=== PATIENT | male | born 1945 | race Caucasian/White ===

== ENCOUNTER → 2016-07-24 14:46 | Emergency (ER) | payer MEDICARE ==
[~2016-07-24 14:46] MED LIST: Ibuprofen TAB* 600 MG PO ONE; oxyCODONE/Acetamin 5/325 MG* TAB PO ONE
--- NOTE | 2016-07-24 16:23 | RAD ---
INDICATION: Left wrist injury COMPARISON: None TECHNIQUE: AP, lateral, and oblique views were obtained. FINDINGS: There is a nondisplaced fracture the radial styloid. There is associated soft tissue swelling about the radial aspect of the distal forearm and wrist. There are no other acute fractures. There is advanced osteoarthritic change but the first carpometacarpal articulation. IMPRESSION: NONDISPLACED FRACTURE RADIAL STYLOID WITH ASSOCIATED SOFT TISSUE SWELLING. ADVANCED UNDERLYING OSTEOARTHRITIC CHANGE AT THE BASE OF THE THUMB
--- NOTE | 2016-07-24 16:43 | ED ---
Upper Extremity Pain - HPI Summary HPI Summary: Patient complaining of left wrist pain and swelling after a fall yesterday. He states he hit a wood harjit hole while mowing the lawn and it threw him off the tractor. Left wrist has erythema and ecchymosis. He has pain with any movement. He took one percocet at home at 0900. He suffered a skin tear of his lateral left elbow as well that he covered with a bandaid. He has full function of the elbow without pain. No prior injury of this wrist. No N/T. - History of Current Complaint Chief Complaint: EDExtremityUpper Stated Complaint: LT WRIST PAIN Time Seen by Provider: 07/24/16 15:13 Hx Obtained From: Patient Mechanism Of Injury: Fall From Height Of: - seated on a riding mower Onset/Duration: Started Days Ago - 1 Timing: Constant Severity Initially: Moderate Severity Currently: Severe Pain Location: Wrist Character: Sharp, Aching Aggravating Factor(s): Movement Alleviating Factor(s): Nothing Associated Signs & Symptoms: Positive: Swelling, Redness, Bruising Related History: Dominant Hand Right - Allergies/Home Medications Allergies/Adverse Reactions: Allergies Allergy/AdvReac Type Severity Reaction Status Date / Time unknown antibiotic Allergy Unknown Uncoded 07/24/16 15:03 Reaction Details Home Medications: Home Medications Citalopram TAB* [CeleXA TAB*] 40 mg PO DAILY 07/24/16 [History Confirmed ] Metoprolol Succinate XL TAB* [Toprol XL TAB*] 50 mg PO BID 07/24/16 [History Confirmed 07/24/16] PMH/Surg Hx/FS Hx/Imm Hx Cardiovascular History: Reports: Hx Deep Vein Thrombosis Musculoskeletal History: Reports: Hx Back Problems Infectious Disease History: No Infectious Disease History: Denies: Traveled Outside the [place] in Last 30 Days - Family History Known Family History: Positive: None - Social History Occupation: Retired Lives: With Family Alcohol Use: Occasionally Substance Use Type: Reports: None Smoking Status (MU): Never Smoked Tobacco Review of Systems Positive: Myalgia, Decreased ROM, Edema Positive: Bruising Negative: Paresthesia, Numbness All Other Systems Reviewed And Are Negative: Yes Physical Exam Triage Information Reviewed: Yes Vital Signs On Initial Exam: Initial Vitals Temp Pulse Resp BP Pulse Ox 97.9 F 112 18 147/86 100 07/24/16 15:01 07/24/16 15:01 07/24/16 15:01 07/24/16 15:01 07/24/16 15:01 Vital Signs Reviewed: Yes Appearance: Positive: Well-Appearing, Well-Nourished, Pain Distress Skin: Positive: Warm, Skin Color Reflects Adequate Perfusion, Dry, Soft, Erythema @ - dorsum of left wrist Head/Face: Positive: Normal Head/Face Inspection Eyes: Positive: EOMI, MERLIN, Conjunctiva Clear ENT: Positive: Hearing grossly normal Respiratory/Lung Sounds: Positive: Breath Sounds Present Cardiovascular: Positive: RRR Musculoskeletal: Positive: Limited @ - movement in all planes limited by pain, Pain @ - TTP left DRUJ, Edema Left - wrist Neurological: Positive: Sensory/Motor Intact, Alert, Oriented to Person Place, Time, NV Bundle Intact Distally Psychiatric: Positive: Affect/Mood Appropriate AVPU Assessment: Alert - Katty Coma Scale Coma Scale Total: 15 Procedures - Splinting Location: left wrist Hand-Made Type: plaster Splint: sugar-tong - with posterior mold Pre-Proc Neuro Vasc Exam: normal Post-Proc Neuro Vasc Exam: normal Diagnostics - Vital Signs Vital Signs Temp Pulse Resp BP Pulse Ox 07/24/16 15:49 16 07/24/16 15:30 97.9 F 112 18 147/86 100 07/24/16 15:01 97.9 F 112 18 147/86 100 - Laboratory Lab Statement: Any lab studies that have been ordered have been reviewed, and results considered in the medical decision making process. - Radiology No standard instances Xray Interpretation: Positive (See Comments) Radiology Interpretation Completed By: Radiologist Course/Dx - Diagnoses Differential Diagnosis/HQI/PQRI: Positive: Arthritis, Bursitis, Contusion, Fracture (Closed), Strain, Sprain Provider Diagnoses: Fracture of styloid process of left radius - Physician Notifications Instructed by Provider To: Have Pt Call For Appt. Discharge - Discharge Plan Condition: Stable Disposition: HOME Prescriptions: oxyCODONE/Acetamin 5/325 MG* [Percocet 5/325 TAB*] 1 tab PO Q4H PRN #24 tab MDD 6 PRN Reason: Pain Patient Education Materials: Wrist Fracture in Adults (ED) Referrals: Fede Leyva MD [Primary Care Provider] - Leland Schofield MD [Medical Doctor] - Additional Instructions: Wear your splint at all times and keep it clean, dry and intact. Use the sling for comfort as needed. Wiggle your fingers and elevate your hand above your heart to reduce swelling and pain. Use ibuprofen 400mg three times daily with meals for the next 3-5 days to decrease swelling and pain as well. Use the pain pill for uncontrolled pain. Call Dr. Hinojosa's office with orthopedics tomorrow for an appointment. in 3-5 day. Return to the emergency department if your symptoms worsen.
[2016-07-24 17:40] VITALS: BP 151/88
== END | disposition home or self-care (01) ==
LOC: ED 14:46
DX: S52.515A Nondisplaced fracture of left radial styloid process, initial encounter for closed fracture (principal); M25.532 Pain in left wrist; M79.1 Myalgia; W19.XXXA Unspecified fall, initial encounter; Y93.9 Activity, unspecified; Y92.9 Unspecified place or not applicable; Y99.9 Unspecified external cause status
CPT/HCPCS: 99282; A9270-GY

== ENCOUNTER 2016-12-07 13:43 | Inpatient (IN) | payer MEDICARE ==
[2016-12-07 15:20] LABS: Albumin 3.3 g/dL (3.2-5.2); BUN/Creatinine Ratio 8.1 (8-20); Calcium 8.9 mg/dL (8.6-10.3); EGFR African American 95.3 (>60); EGFR Non-African American 74.1 (>60); Globulin 2.7 g/dL (2-4); Potassium 3.9 mmol/L (3.5-5.0); Total Bilirubin 0.7 mg/dL (0.2-1.0); Troponin I 0.01 ng/mL (<0.04)
--- NOTE | 2016-12-07 15:23 | RAD ---
HISTORY: Chest pain COMPARISONS: None relevant available time dictation VIEWS: 1: frontal portable view of the chest at 2:55 PM FINDINGS: LINES AND TUBES: None. CARDIOMEDIASTINAL SILHOUETTE: The cardiomediastinal silhouette is normal for portable technique. PLEURA: The costophrenic angles are sharp. No pleural abnormalities are noted. LUNG PARENCHYMA: There is a 3.4 cm rounded density of the left midlung field. ABDOMEN: The upper abdomen is clear. There is no subphrenic gas. BONES AND SOFT TISSUES: No bone or soft tissue abnormalities are noted. IMPRESSION: THERE IS A 3.4 CM ROUNDED DENSITY OF THE LEFT MIDLUNG FIELD. WHILE THIS MAY REPRESENT FLUID ALONG THE FISSURE, PARENCHYMAL MASSES WITHIN THE DIFFERENTIAL. RECOMMEND FURTHER EVALUATION WITH CONTRAST-ENHANCED CT OF THE CHEST
[2016-12-07 15:47] LABS: Hematocrit 38 % (42-52); Hemoglobin 12.8 g/dl (14.0-18.0); Mean Corpuscular HGB Conc 34 g/dl (31-36); Mean Corpuscular Hemoglobin 37 pg (27-31); Mean Platelet Volume 8 um3 (7.4-10.4); Red Blood Count 3.49 10^6/ul (4.0-5.4); Red Cell Distribution Width 14 % (10.5-15); White Blood Count 4.9 10^3/ul (3.5-10.8)
[2016-12-07 15:52] LABS: Add Diff/Slide Review? Slide Review Added; Mean Corpuscular Volume 108 fL (80-94)
[2016-12-07] MEDS ORDERED: Iohexol 350* (CONTRAST) 500 ML MDV IV ONE (17:14)
--- NOTE | 2016-12-07 17:26 | RAD ---
HISTORY: Shortness of breath COMPARISONS: Chest x-ray dated December 07, 2016 TECHNIQUE: Multiple contiguous axial CT scans of the chest were obtained after the administration of nonionic intravenous contrast, timed to the pulmonary arterial phase of contrast enhancement.. Coronal and sagittal multiplanar reformations are also submitted for review. FINDINGS: NECK AND THYROID: The lower neck and thyroid are unremarkable. CHEST WALL: There is no lower cervical, axillary, or supraclavicular lymphadenopathy by size criteria. HEART AND PERICARDIUM: The heart is unremarkable. There is a small pericardial effusion. AORTA AND PULMONARY VASCULATURE: There are filling defects within the lobar branches to the lower lobes bilaterally and to the left upper lobe MEDIASTINUM: There is no mediastinal lymphadenopathy by size criteria. MAGNO: There is no hilar lymphadenopathy by size criteria. AIRWAY AND ESOPHAGUS: The airway is unremarkable, without endobronchial filling defect. The esophagus is grossly normal. LUNG PARENCHYMA: There is a 3.4 cm mass of the left upper lobe centered on axial image 32. There are smaller adjacent nodules in the left upper lobe. PLEURA: There are bilateral pleural effusions. UPPER ABDOMEN: There is fatty infiltration of the liver. BONES AND SOFT TISSUES: Mild degenerative changes are noted of the spine OTHER: None. IMPRESSION: 1. BILATERAL LOBAR PULMONARY EMBOLI. 2. 3.4 CM MASS OF THE LEFT UPPER LOBE. RECOMMEND CONSIDERATION OF FURTHER EVALUATION WITH PET/CT AND/OR TISSUE SAMPLING. 3. BILATERAL PLEURAL EFFUSIONS. 4. FATTY LIVER. PRELIMINARY FINDINGS WERE DISCUSSED WITH DR. GILBERT IN THE EMERGENCY DEPARTMENT AT APPROXIMATELY 5:22 PM ON DECEMBER 07, 2016.
[2016-12-07] MEDS ORDERED: Labetalol IV* 5 MG/ML 20 ML VIAL IV PUSH ONE (17:46)
[2016-12-07] MEDS ORDERED: Labetalol IV* 5 MG/ML 20 ML VIAL ONE (17:47)
[2016-12-07] MEDS ORDERED: hydrALAZINE IV* 20 MG/ML VIAL IV SLOW PU ONE (18:19)
[2016-12-07] MEDS ORDERED: hydrALAZINE IV* 20 MG/ML VIAL IV SLOW PU PRN (18:28)
[2016-12-07] MEDS ORDERED: Heparin VIAL(*) 5000 UNITS/ML VIAL (FIVE THOUSAND) IV SCH (19:00)
[2016-12-07] MEDS: oxyCODONE TAB* 5 MG TAB PO PRN (19:18)
[2016-12-07] MEDS: Metoprolol Succinate XL TAB* 50 MG PO SCH (20:49)
[2016-12-07] MEDS: Hydrochlorothiazide TAB* 25 MG PO SCH (20:49)
[2016-12-07] MEDS: NS 0.9% 1000 ML* 1,000 ML IV SCH (21:11)
[2016-12-07] MEDS: Heparin DRIP 25,000 UNITS(*) 25,000 UNITS/500 ML BAG IVPB SCH (21:44)
[2016-12-07 22:45] LABS: Hematocrit 40 % (42-52); Hemoglobin 13.5 g/dl (14.0-18.0); Mean Corpuscular HGB Conc 34 g/dl (31-36); Mean Corpuscular Hemoglobin 37 pg (27-31); Mean Platelet Volume 8 um3 (7.4-10.4); Red Blood Count 3.65 10^6/ul (4.0-5.4); Red Cell Distribution Width 14 % (10.5-15); White Blood Count 5.1 10^3/ul (3.5-10.8)
[2016-12-07 22:54] LABS: Comments Flag Yes; Mean Corpuscular Volume 109 fL (80-94)
[2016-12-07 22:59] LABS: Blood Urea Nitrogen 8 mg/dL (6-24)
[2016-12-07 23:03] LABS: Troponin I 0.01 ng/mL (<0.04)
[2016-12-07 23:24] LABS: TSH (Thyroid Stimulating Horm) 1.48 mcIU/mL (0.34-5.60)
[2016-12-08 00:05] LABS: Folate 11.78 ng/mL (>3.99)
[2016-12-08 00:06] LABS: Vitamin B12 > 1450 pg/mL (180-914)
[2016-12-08] MEDS: oxyCODONE TAB* 5 MG TAB PO PRN ×4 (01:02→23:14)
[2016-12-08] MEDS: Heparin DRIP 25,000 UNITS(*) 25,000 UNITS/500 ML BAG IVPB SCH (02:46)
--- NOTE | 2016-12-08 04:21 | HP ---
CC: Jasmin Short * HISTORY AND PHYSICAL: DATE OF ADMISSION: 12/07/16 PRIMARY CARE PHYSICIAN: Jasmin Short. CHIEF COMPLAINT: Shortness of breath, chest pain. HISTORY OF PRESENT ILLNESS: Mr. Vargas is a 71-year-old male with past medical history of hypertension, peripheral artery disease, chronic back pain, who has not had good medical followup, who presents to the hospital with a few weeks of shortness of breath and chest pain. The patient states the symptoms began suddenly a few weeks ago. He woke up in the morning and noticed he had some dyspnea on exertion and was easily fatigable. Over the following weeks, his symptoms slowly progressed. He noticed a left-sided chest pain that was occasionally associated with exertion, but other times was present at rest. It seemed to get worse with deep breaths and was occasionally reproducible with palpation. He also reports frequent soaking sweats, occasionally required him to change his clothes. He has had a decreased appetite over the past few weeks. He is unclear if he has had any weight loss as he has not been weighing himself. He has had a dry cough as well. He reports nausea, some intermittent emesis, some diarrhea which is resolved. Denies any blood in the stool. No constipation or dysuria. Has noticed that he has had worsening left lower extremity edema. The patient has been extremely stressed recently as his has been at [facility] and he does not feel that she is going to be discharged from there. He states that she has been treated for chronic wounds and is mostly bedbound now. It seems that he has been devoting a lot of his time and attention to her and has been neglecting his own health. He states he has not seen his PCP, Dr. Leyva, in over a year. He does report that he was hospitalized at [place] in January due to what sounds like a possible arterial occlusion. He states that it was felt that he may need an amputation; however, he saw Dr. Herndon there who placed some stents which seemed to improve blood flow to his lower extremity. He has been unable to afford all of the medications that he is supposed to be on and he cannot recall the names of all of them. PAST MEDICAL HISTORY: Chronic back pain, hypertension, peripheral artery disease. PAST SURGICAL HISTORY: Ankle surgery, stent placements in left lower extremity. HOME MEDICATIONS: 1. Aspirin 81 mg by mouth daily. 2. Toprol-XL 50 mg by mouth 2 times daily. 3. Oxycodone/acetaminophen 10/325 one tablet by mouth every 6 hours as needed for pain. 4. Hydrochlorothiazide 25 mg by mouth daily. ALLERGIES: The patient reports no known drug allergies. FAMILY HISTORY: Mother had diabetes. Father is unknown. 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 He denies any smoking, but was exposed to a lot of secondhand smoke as his was a [id number]-day smoker. Denies any alcohol or illicit drug use. PHYSICAL EXAMINATION GENERAL: The patient is an elderly man lying in bed in no apparent distress. VITAL SIGNS: On admission, temperature 96.9, heart rate of 112, respiratory rate of 16, O2 saturation 97% on room air, blood pressure 171/109. HEENT: Head normocephalic, atraumatic. Eyes: Pupils equal, round, and reactive to light and accommodation. Anicteric sclerae. ENT: Moist mucous membranes. No cervical adenopathy. LUNGS: Clear to auscultation bilaterally. No wheezes, rales, or rhonchi. CARDIOVASCULAR: Tachycardic, irregularly irregular. No murmurs, gallops, or rubs. ABDOMEN: Soft, nondistended. The patient reports a mild tenderness to palpation in bilateral lower quadrants. Bowel sounds are positive. No rebound or guarding. EXTREMITIES: The patient has significant left lower extremity edema that is pitting to just below the knee. Some mild right lower extremity edema as well. NEURO: The patient is alert and oriented x3. No focal neurological deficits. SKIN: Warm, dry, and well perfused. LABS AND DIAGNOSTICS: White blood cell count of 4.9, hemoglobin of 12.8, hematocrit of 38, MCV of 108, platelets of 288. Sodium of 138, potassium 3.9, chloride of 103, carbon dioxide 27, BUN of 8, creatinine 0.99, lactic acid of 1.0, AST of 54, ALT of 36, alk phos of 76. Troponin 0.01 x2. B-natriuretic peptide of 513. EKG personally reviewed shows atrial fibrillation with a heart rate of 107. Chest x-ray personally reviewed shows left mid lung field density. CTA of the chest shows bilateral lobar PEs and a 3.4 cm left upper lobe mass. ASSESSMENT AND PLAN: Bilateral pulmonary embolisms, a lung mass, and atrial fibrillation which appears to be new in a 71-year-old man with a past medical history of hypertension, peripheral artery disease, and chronic back pain. 1. Bilateral pulmonary embolisms. The patient is tachycardic. Vital signs seem to be fairly stable at the moment. In fact, he is significantly hypertensive. We will start the patient on a heparin drip for now as he may need an intervention done tomorrow. It seems like there is a high likelihood he has a lower extremity DVT as well. We will check bilateral lower extremity Dopplers. We will continue to trend the patient's troponin. His B-natriuretic peptide is elevated. We will check an echocardiogram in the morning to evaluate for right heart strain. He is not currently requiring any oxygen. 2. Lung mass. Certainly concerning for cancer in the setting of what appears to be a hypercoagulable state. We will put in for a CT-guided biopsy as this seems to be a bit more peripheral. We will touch base with Radiology in the morning to see when to stop the heparin drip to allow this procedure to go through. 3. Atrial fibrillation. Seems to be new for this patient. He states he has no history of AFib in the past. Heparin drip as above. We will continue the patient on metoprolol and I suspect the tachycardia at this point is mostly driven by his PEs. We will get an echo as above. Check a TSH. I suspect this is likely secondary to his pulmonary emboli. 4. Hypertension. The patient's blood pressures are quite elevated. Gave him 20 of labetalol in the ED with little improvement. We will give him IV hydralazine for now. Restart his metoprolol as well as his hydrochlorothiazide , which he states he has not taken in a few days. 5. Peripheral artery disease. Continue the patient on aspirin for now. We will try to obtain records from [facility]. 6. Chronic pain. Continue the patient on oxycodone 10 mg every 6 hours. 7. DVT prophylaxis. Heparin subcu. 8. Code status. The patient confirmed he is a full code. TIME SPENT: Total time spent on this admission 55 minutes, with over half the time spent face to face with the patient in counseling and coordinating care. [id number]/[facility] #: [id number] MTDD
[2016-12-08 06:40] LABS: Hematocrit 40 % (42-52); Hemoglobin 13.5 g/dl (14.0-18.0); Mean Corpuscular HGB Conc 34 g/dl (31-36); Mean Corpuscular Hemoglobin 37 pg (27-31); Mean Platelet Volume 8 um3 (7.4-10.4); Red Blood Count 3.65 10^6/ul (4.0-5.4); Red Cell Distribution Width 14 % (10.5-15); White Blood Count 6.3 10^3/ul (3.5-10.8)
[2016-12-08 06:41] LABS: Comments Flag Yes; Mean Corpuscular Volume 109 fL (80-94)
[2016-12-08 06:54] LABS: BUN/Creatinine Ratio 7.4 (8-20); EGFR African American 101.2 (>60); EGFR Non-African American 78.7 (>60); Potassium 3.9 mmol/L (3.5-5.0)
[2016-12-08] MEDS ORDERED: Influenza VAC *QUAD* 2017-18* 0.5 ML SYRINGE IM ONE (09:00)
[2016-12-08] MEDS ORDERED: Pneumococcal *Vac Polyvalent 0.5 ML VIAL IM ONE (09:00)
[2016-12-08] MEDS: Hydrochlorothiazide TAB* 25 MG PO SCH (09:06)
[2016-12-08] MEDS: Metoprolol Succinate XL TAB* 50 MG PO SCH ×2 (09:06→21:58)
[2016-12-08] MEDS: Aspirin EC Low Dose* 81 MG TAB.EC PO SCH (09:06)
[2016-12-08] MEDS: NS 0.9% 1000 ML* 1,000 ML IV SCH ×2 (09:07→23:13)
--- NOTE | 2016-12-08 09:34 | ECHO ---
Patient: ENE MORROW [facility] Rec#: [id number] : 1945 Date: 12/08/2016 Age: 71y Height: 167.64 cm / 66.0 in Weight: 73.94 kg / 163.0 lbs Sex: M BSA: 1.83 Room#: [facility] Admit Date#: 12/07/2016 Type: Inpatient Referring: GEOVANI DONAHUE MD Reading: Adrian Leblanc MD Drug Safety Specialist: Chiara MccarthyVANIA CC: Fede Leyva MD Transthoracic Echocardiogram Indication: Pulmonary Emboli BP: 151/95 HR: 87 Rhythm: A-Fib Findings History: HTN, PAD, and chronic back pain. Technical Comments: The study quality is fair. The study is technically limited due to patient body habitus. Completed at 0900. Left Ventricle: The left ventricular chamber size is normal. Mild concentric left ventricular hypertrophy is observed. There is a prominent septal knuckle. Global left ventricular wall motion and contractility are within normal limits. There is normal left ventricular systolic function. The estimated ejection fraction is 55-60%. The assessment of diastolic function is non-diagnostic. Left Atrium: The left atrium is moderately dilated. Right Ventricle: Moderator Band present. The right ventricle is mildly dilated. The right ventricle wall thickness is mildly increased. The right ventricular global systolic function is mildly reduced. Right Atrium: The right atrium is moderately dilated. Aortic Valve: The aortic valve is trileaflet. The aortic valve leaflets are mildly thickened. There is trace to mild aortic regurgitation. There is no evidence of aortic stenosis. Mitral Valve: The mitral valve leaflets are mildly thickened. There is mild mitral regurgitation. There is no evidence of mitral stenosis. Tricuspid Valve: The tricuspid valve leaflets are normal. There is mild to moderate tricuspid regurgitation. The right ventricular systolic pressure is estimated at 44 mmHg. There is evidence of mild to moderate pulmonary hypertension. There is no tricuspid stenosis. Pulmonic Valve: The pulmonic valve appears normal. There is a trace pulmonic regurgitation. There is no pulmonic stenosis. Pericardium: There is a small pericardial effusion. There are no signs of significant hemodynamic compromise. A pericardial fat pad is visualized. A left pleural effusion is present. Aorta: There is no dilatation of the ascending aorta. The aortic arch is not well visualized. The aortic root is normal in size. Pulmonary Artery: The main pulmonary artery appears normal. Venous: The inferior vena cava appears normal in size. There is less than 50% respiratory change in the inferior vena cava dimension. Conclusions Global left ventricular wall motion and contractility are within normal limits. There is normal left ventricular systolic function. The estimated ejection fraction is 55-60%. The right ventricular global systolic function is mildly reduced. There is trace to mild aortic regurgitation. There is no evidence of aortic stenosis. There is mild mitral regurgitation. There is mild to moderate tricuspid regurgitation. There is evidence of mild to moderate pulmonary hypertension. There is a small pericardial effusion. There are no signs of significant hemodynamic compromise. A left pleural effusion is present. Measurements Name Value Normal Range RVIDd (AP) 2D 2.9 cm (0.9 - 2.6) RVDdMajor (2D) 4.8 cm (2.2 - 4.4) RVAW (2D) 0.7 cm (0.2 - 0.5) RAd ISD 4CH 5.8 cm (3.4 - 4.9) RA (A4C)W 5 cm (2.9 - 4.6) IVSd (2D) 1.2 cm (0.6 - 1) LVPWd (2D) 1.2 cm (0.6 - 1) LVIDd (2D) 3.1 cm (3.6 - 5.4) LVIDs (2D) 2.5 cm - LV FS (2D) 19 % (25 - 45) Aortic Annulus 1.8 cm (1.4 - 2.6) Ao root diameter (2D) 3 cm (2.1 - 3.5) Ascending Ao 3.1 cm (2.1 - 3.4) LA dimension (AP) 2D 3.8 cm (2.3 - 3.8) LAd ISD 4CH 6.3 cm (2.9 - 5.3) LA ISD 4CH W 4.5 cm (2.5 - 4.5) Name Value Normal Range LA ESV SP 4CH (A/L) 73 ml - LA ESV SP 2CH (A/L) 98 ml - LA ESV BP (A/L) 86 ml - LA ESV BP (A/L) index 47 ml/m2 - LA ESV SP 4CH (MOD) 64 ml - LA ESV SP 2CH (MOD) 93 ml - Name Value Normal Range MV E-wave Vmax 1.21 m/sec - MV deceleration time 164 msec - LV septal e' Vmax 0.06 m/sec - LV lateral e' Vmax 0.09 m/sec - LV E:e' septal ratio 20.2 ratio - LV E:e' lateral ratio 20.2 ratio - Name Value Normal Range AV Vmax 1 m/sec - AV VTI 22.9 cm - AV peak gradient 4.05 mmHg - AV mean gradient 2.61 mmHg - LVOT Vmax 0.97 m/sec - LVOT VTI 18.1 cm - LVOT peak gradient 3.85 mmHg - LVOT mean gradient 2.02 mmHg - Name Value Normal Range TR Vmax 3 m/sec - TR peak gradient 36 mmHg - RAP 8 mmHg - RVSP 44 mmHg - IVC diameter 1.5 cm - Name Value Normal Range PV Vmax 0.6 m/sec - PV peak gradient 1.5 mmHg -
--- NOTE | 2016-12-08 12:28 | RAD ---
INDICATION: Bilateral leg swelling. COMPARISON: None TECHNIQUE: Duplex interrogation of the Lowerextremity was performed. FINDINGS: Deep veins: The common femoral, great saphenous, profunda femoris, proximal, mid, and distal deep femoral, popliteal, posterior tibial, and peroneal veins were interrogated. On the right there is partial compression of the common femoral vein compatible with a recanalized vessel. There is thrombosis of one the peroneal veins. The remaining deep venous structures on the right demonstrate wide patency with normal compressibility. There is augmentation and phasic flow. On the left there is thrombosis of the deep femoral vein and popliteal vein. The tibial veins are patent. Superficial veins: There are no findings of superficial thrombophlebitis. Popliteal fossa:There is no evidence of a popliteal cyst. Soft tissues: There is dependent edema left greater than right. IMPRESSION: BILATERAL DEEP VENOUS THROMBOSIS DESCRIBED.
--- NOTE | 2016-12-08 12:38 | CONS ---
PULMONARY CONSULTATION REPORT: DATE OF CONSULT: 12/08/16 CONSULTATION REQUESTED BY: Dr. Hill. HISTORY OF PRESENT ILLNESS: The patient is a 71-year-old male with a history of hypertension; peripheral artery disease, status post revascularization; chronic back pain, who presented to the hospital for evaluation of shortness of breath and chest pain. The patient reported he woke up with sudden onset of chest pain and shortness of breath few weeks ago. The patient symptoms have progressively worsened. The patient initially thought it could be from his heart. He had left- sided chest pain associated with exertion and also at rest. The patient also reported that taking deep breath would make the pain worse. The pain was also reproducible with palpation on to the left chest. The patient also reported drenching sweats recently. The patient denies weight loss or loss of appetite. The patient also reports mild intermittent dry cough. The patient reported nausea; however, denied vomiting, diarrhea, blood in stool, dysuria, weakness. The patient reported headaches. The patient has been taking care of his who has been at [facility] and will be going to be discharged from there. He has been avoiding going to the hospital or to his primary care for his symptoms. The patient was seen and examined at bedside by me this morning. The patient reports a slight improvement in chest pain and breathing. The patient still reports that he feels restricted, taking deep breath. The patient also reports left lower extremity swelling. The patient reports that he also has noticed tenderness in the left lower extremity. Further evaluation in the emergency room revealed bilateral subsegmental pulmonary embolism. The patient was started on heparin drip. The patient was also noted to have 3 cm peripherally located wedge-shaped mass in left lung. No significant mediastinal or hilar adenopathy was noted. The patient is not requiring O2 supplementation. He has remained hemodynamically stable. Pulmonary consultation was requested for evaluation of the left lung mass. PAST MEDICAL HISTORY: 1. Chronic back pain. 2. Hypertension. 3. Peripheral artery disease. PAST SURGICAL HISTORY: 1. Ankle surgery. 2. Stent placement in left lower extremity. MEDICATIONS: 1. Aspirin. 2. Toprol. 3. Oxycodone/acetaminophen for back pain. 4. Hydrochlorothiazide. ALLERGIES: No known drug allergies. FAMILY HISTORY: Mother has diabetes. Father's history is unknown. SOCIAL HISTORY: Nonsmoker with second-hand smoking exposure. 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 Denies alcohol or illicit drug abuse. PHYSICAL EXAM: A white male in bed, in no apparent distress. Vital Signs: Temperature 98.2, heart rate 88 to 90 beats per minute, respiratory rate 18 per minute, blood pressure 158/95. HEENT: Pupils equal, reactive to light, mucous membranes moist. No JVD. No scleral icterus. Lungs: Clear to auscultation bilaterally. No wheezes, rales or rhonchi. Cardiovascular: Tachycardic, irregular, no murmurs, gallops, or rubs. Abdomen: Soft, nontender, nondistended. Bowel sounds present. Extremities: Left lower extremity is tender, swollen just below the knee with some skin discoloration. Neurologic: No focal deficits. Skin: Warm. No rashes or bruises. DIAGNOSTIC STUDIES/LAB DATA: WBC count 6.3, hemoglobin 13.5, hematocrit 40, platelet count 315. PTT from this morning is 151.6. Sodium 136, potassium 3.9 , chloride 101, bicarb 26, BUN 7, creatinine 0.94, glucose 85, lactic acid 1.0. Troponins within normal limits. BNP 513. CT of the chest was personally reviewed by me, evidence of filling defects within lobar branches to lower lobes bilaterally and also to left upper lobe. There is evidence of 3.4-cm mass in the left upper lobe with adjacent small opacities in the left upper lobe area, bilateral pleural effusions. No mediastinal or hilar adenopathy was noted. EKG revealed evidence of atrial fibrillation. IMPRESSION AND RECOMMENDATIONS: 71-year-old male with second-hand smoke exposure, occupational exposure when he worked as station mechanic with history of left lower extremity swelling, sudden onset of chest pain and shortness of breath with evidence of segmental pulmonary embolism bilaterally, with bilateral pleural effusions and 3-cm lung mass in left upper lobe. 1. Bilateral pulmonary embolism. 2. Possible lower extremity deep venous thrombosis. 3. Lung mass in the left upper lobe - infarct versus malignancy. The patient not hypoxemic, not in distress, bilateral pleural effusions could be secondary to pulmonary embolism. No reason to drain the pleural effusion. Lung mass is peripheral accessible for CT-guided biopsy; however, it could be secondary to pulmonary infarct from underlying pulmonary embolism even though malignancy is still in the differential and cannot entirely be ruled out. Will review images with Radiology again to see if this would be more consistent with a wedge-shaped infarct. If it were to be infarct, I would continue with anticoagulation and repeat the scan in 6 to 8 weeks. If malignancy is higher in the differential, then we will go ahead and get a CT - guided biopsy. Above was discussed in detail with the patient and he is agreeable. Discussed with Dr. Hill. [id number]/[facility] #: [id number] GAGAN
[2016-12-08] MEDS: Enoxaparin(*) 80 MG/0.8 ML SYR SUBCUT SCH ×2 (12:50→23:13)
--- NOTE | 2016-12-08 14:51 | PN ---
Subjective Date of Service: 12/08/16 Interval History: Patient seen this morning while getting LE doppler. Reports improvement in his symptoms. Feels he is able to take deeper breaths. Family History: Unchanged from Admission Social History: Unchanged from Admission Past Medical History: Unchanged from Admission Objective Active Medications: Aspirin (Aspirin Ec Low Dose*) 81 mg PO DAILY SARAY Enoxaparin Sodium (Lovenox(*)) 75 mg SUBCUT Q12H SARAY Hydralazine HCl (Apresoline Iv*) 10 mg IV SLOW PU Q6H PRN Hydrochlorothiazide (Hydrodiuril Tab*) 25 mg PO DAILY SARAY Sodium Chloride (Ns 0.9% 1000 Ml*) 1,000 mls @ 100 mls/hr IV PER RATE SARAY Metoprolol Succinate (Toprol Xl Tab*) 50 mg PO BID SARAY Oxycodone HCl (Roxycodone Tab*) 10 mg PO Q6H PRN Pharmacy Profile Note (Coumadin Per Pharmacy*) 1 note FOLLOW UP .PER PHARMACY PROTOC SARAY Warfarin Sodium (Coumadin Tab(*)) 5 mg PO 1700 ONE Vital Signs 12/07/16 12/07/16 12/07/16 19:13 19:18 20:07 Temperature 97.7 F 97.7 F Pulse Rate 80 80 Respiratory 20 16 20 Rate Blood Pressure 152/96 152/96 (mmHg) O2 Sat by Pulse 97 97 Oximetry 12/08/16 12/08/16 12/08/16 11:05 12:33 12:34 Temperature Pulse Rate Respiratory 20 Rate Blood Pressure 185/128 190/110 (mmHg) O2 Sat by Pulse Oximetry Oxygen Devices in Use Now: None Appearance: Elderly, M, laying in bed in NAD Eyes: No Scleral Icterus Ears/Nose/Mouth/Throat: Mucous Membranes Moist Neck: NL Appearance and Movements; NL JVP Respiratory: Symmetrical Chest Expansion and Respiratory Effort, Clear to Auscultation Cardiovascular: NL Sounds; No Murmurs; No JVD, - - Tachycardic Abdominal: NL Sounds; No Tenderness; No Distention Lymphatic: No Cervical Adenopathy Extremities: - - B/L LE edema, L>R Skin: No Rash or Ulcers Neurological: Alert and Oriented x 3 Result Diagrams: 12/08/16 06:18 12/08/16 06:18 Assess/Plan/Problems-Billing Assessment: B/L PEs, lung mass vs infarction, HTN urgency, AFib in a 71 yo M with hx of HTN , PAD, chronic pain - Patient Problems (1) Pulmonary emboli Current Visit: Yes Comment: Will transition to Lovenox/Warfarin for now as no procedure scheduled. Appreciate Pulm assistance, Dr. England and Dr. Laguna both feel this is likely a pulmonary infarct and not a mass. Can repeat CT scan in 4 weeks. SW to assist in determining ideal med options. LE dopplers show B/L DVTs. Echo shows some mild R sided dysfunction. (2) Atrial fibrillation Current Visit: Yes Comment: HR improved, continue home metoprolol. Lovenox/ coumadin as above. (3) HTN (hypertension) Current Visit: Yes Comment: Continue home Metoprolol and HCTZ. PRN hydralazine available. (4) PAD (peripheral artery disease) Current Visit: Yes Comment: Continue ASA. Obtaining records from [facility] (5) Chronic pain Current Visit: Yes Comment: Continue oxy prn (6) DVT prophylaxis Current Visit: Yes Comment: Lovenox/Warfarin Status and Disposition: Inpatient for PE treatment
[2016-12-08] MEDS ORDERED: Ondansetron INJ* 2 MG/ML VIAL IV PRN (16:50)
[2016-12-08] MEDS ORDERED: Warfarin TAB(*) 5 MG PO ONE (17:00)
[2016-12-08] MEDS: Lisinopril TAB* 10 MG PO SCH (17:18)
[2016-12-09] MEDS: Metoprolol Succinate XL TAB* 50 MG PO SCH ×2 (09:23→20:45)
[2016-12-09] MEDS: Hydrochlorothiazide TAB* 25 MG PO SCH (09:23)
[2016-12-09] MEDS: Aspirin EC Low Dose* 81 MG TAB.EC PO SCH (09:23)
[2016-12-09] MEDS: Lisinopril TAB* 10 MG PO SCH (09:24)
[2016-12-09] MEDS: oxyCODONE TAB* 5 MG TAB PO PRN ×3 (09:25→23:20)
--- NOTE | 2016-12-09 11:51 | PN ---
Subjective Date of Service: 12/09/16 Interval History: Patient seen this morning. Reports breathing continues to improve. No chest pain. Had some nausea yesterday that resolved with meds, tolerated breakfast OK. Has been ambulating around the room but not around the unit. Family History: Unchanged from Admission Social History: Unchanged from Admission Past Medical History: Unchanged from Admission Objective Active Medications: Aspirin (Aspirin Ec Low Dose*) 81 mg PO DAILY SARAY Enoxaparin Sodium (Lovenox(*)) 75 mg SUBCUT Q12H SARAY Hydralazine HCl (Apresoline Iv*) 10 mg IV SLOW PU Q6H PRN Hydrochlorothiazide (Hydrodiuril Tab*) 25 mg PO DAILY SARAY Lisinopril (Prinivil Tab*) 10 mg PO DAILY SARAY Metoprolol Succinate (Toprol Xl Tab*) 50 mg PO BID SARAY Ondansetron HCl (Zofran Inj*) 4 mg IV Q6H PRN Oxycodone HCl (Roxycodone Tab*) 10 mg PO Q6H PRN Pharmacy Profile Note (Coumadin Per Pharmacy*) 1 note FOLLOW UP .PER PHARMACY PROTOC SARAY Vital Signs 12/08/16 12/08/16 12/08/16 12:18 12:33 12:34 Temperature 97.3 F Pulse Rate 91 Respiratory Rate Blood Pressure 185/128 190/110 (mmHg) O2 Sat by Pulse 97 Oximetry 12/08/16 12/08/16 12/08/16 15:13 15:29 17:17 Temperature 97.5 F Pulse Rate 88 Respiratory 16 22 Rate Blood Pressure 170/86 144/98 (mmHg) O2 Sat by Pulse 98 Oximetry 12/08/16 12/08/16 12/08/16 19:17 21:01 22:15 Temperature 97.5 F Pulse Rate 113 Respiratory 20 16 18 Rate Blood Pressure 103/59 (mmHg) O2 Sat by Pulse 95 Oximetry 12/08/16 12/08/16 12/09/16 23:14 23:29 01:14 Temperature 97.6 F Pulse Rate 98 Respiratory 20 16 15 Rate Blood Pressure 132/62 (mmHg) O2 Sat by Pulse 95 Oximetry 12/09/16 12/09/16 12/09/16 03:24 07:20 08:00 Temperature 97.9 F 97.7 F Pulse Rate 83 98 Respiratory 16 18 18 Rate Blood Pressure 131/77 143/73 (mmHg) O2 Sat by Pulse 96 94 Oximetry 12/09/16 12/09/16 12/09/16 09:25 11:20 11:22 Temperature 97.7 F Pulse Rate 95 Respiratory 20 17 18 Rate Blood Pressure 130/83 (mmHg) O2 Sat by Pulse 93 Oximetry Oxygen Devices in Use Now: None Appearance: Elderly, M, laying in bed in NAD Eyes: No Scleral Icterus Ears/Nose/Mouth/Throat: Mucous Membranes Moist Neck: NL Appearance and Movements; NL JVP Respiratory: Symmetrical Chest Expansion and Respiratory Effort, Clear to Auscultation Cardiovascular: - - IRIR, normal rate Abdominal: NL Sounds; No Tenderness; No Distention Lymphatic: No Cervical Adenopathy Extremities: - - B/L LE edema, L>R, much improved Skin: No Rash or Ulcers Neurological: Alert and Oriented x 3 Result Diagrams: 12/08/16 06:18 12/08/16 06:18 Assess/Plan/Problems-Billing Assessment: B/L PEs, lung mass vs infarction, HTN urgency, AFib in a 71 yo M with hx of HTN , PAD, chronic pain - Patient Problems (1) Pulmonary emboli Current Visit: Yes Comment: Continue Lovenox/Coumadin. Appreciate Pulm assistance, Dr. England and Dr. Laguna both feel this is likely a pulmonary infarct and not a mass. Can repeat CT scan in 4 weeks. LE dopplers show B/L DVTs. Echo shows some mild R sided dysfunction. (2) Atrial fibrillation Current Visit: Yes Comment: Continue home metoprolol. Lovenox/coumadin as above. (3) HTN (hypertension) Current Visit: Yes Comment: BPs elevated again on 12/08, added on Lisinopril with good results. Continue Metoprolol and HCTZ. (4) PAD (peripheral artery disease) Current Visit: Yes Comment: Continue ASA. Records obtained from [place], patient underwent thrombolysis and stent placement for PAD (5) Chronic pain Current Visit: Yes Comment: Continue oxy prn (6) DVT prophylaxis Current Visit: Yes Comment: Lovenox/Warfarin Status and Disposition: Inpatient for PE treatment
[2016-12-09] MEDS: Enoxaparin(*) 80 MG/0.8 ML SYR SUBCUT SCH ×2 (12:13→23:16)
[2016-12-09] MEDS ORDERED: Warfarin TAB(*) 5 MG PO ONE (13:00)
--- NOTE | 2016-12-09 13:07 | PN ---
Progress Note - Progress Note Date of Service: 12/09/16 - Pulm f/u note Note: Pt seen and examined at bedside. Pt reported improvement in breathing. Denies cough or chest pain. Active Medications Generic Name Dose Route Start Last Admin Trade Name Freq PRN Reason Stop Dose Admin Aspirin 81 mg 12/08/16 09:00 12/09/16 09:23 Aspirin Ec Low Dose* PO 81 mg DAILY SARAY Administration Enoxaparin Sodium 75 mg 12/08/16 12:00 12/09/16 12:13 Lovenox(*) SUBCUT 75 mg Q12H SARAY Administration Hydralazine HCl 10 mg 12/07/16 18:28 12/08/16 12:48 Apresoline Iv* IV SLOW PU 10 mg Q6H PRN Administration SBP > 180 Hydrochlorothiazide 25 mg 12/07/16 19:00 12/09/16 09:23 Hydrodiuril Tab* PO 25 mg DAILY SARAY Administration Lisinopril 10 mg 12/08/16 17:00 12/09/16 09:24 Prinivil Tab* PO 10 mg DAILY SARAY Administration Metoprolol Succinate 50 mg 12/07/16 21:00 12/09/16 09:23 Toprol Xl Tab* PO 50 mg BID SARAY Administration Ondansetron HCl 4 mg 12/08/16 16:50 12/08/16 17:18 Zofran Inj* IV 4 mg Q6H PRN Administration NAUSEA Oxycodone HCl 10 mg 12/07/16 18:23 12/09/16 09:25 Roxycodone Tab* PO 10 mg Q6H PRN Administration PAIN Pharmacy Profile Note 1 note 12/08/16 12:00 Coumadin Per Pharmacy* FOLLOW UP .PER PHARMACY PROTOC [facility] Protocol Warfarin Sodium 5 mg 12/09/16 13:00 Coumadin Tab(*) PO 12/09/16 13:01 ONCE ONE Active Medications Generic Name Dose Route Start Last Admin Trade Name Freq PRN Reason Stop Dose Admin Aspirin 81 mg 12/08/16 09:00 12/09/16 09:23 Aspirin Ec Low Dose* PO 81 mg DAILY SARAY Administration Enoxaparin Sodium 75 mg 12/08/16 12:00 12/09/16 12:13 Lovenox(*) SUBCUT 75 mg Q12H SARAY Administration Hydralazine HCl 10 mg 12/07/16 18:28 12/08/16 12:48 Apresoline Iv* IV SLOW PU 10 mg Q6H PRN Administration SBP > 180 Hydrochlorothiazide 25 mg 12/07/16 19:00 12/09/16 09:23 Hydrodiuril Tab* PO 25 mg DAILY SARAY Administration Lisinopril 10 mg 12/08/16 17:00 12/09/16 09:24 Prinivil Tab* PO 10 mg DAILY SARAY Administration Metoprolol Succinate 50 mg 12/07/16 21:00 12/09/16 09:23 Toprol Xl Tab* PO 50 mg BID SARAY Administration Ondansetron HCl 4 mg 12/08/16 16:50 12/08/16 17:18 Zofran Inj* IV 4 mg Q6H PRN Administration NAUSEA Oxycodone HCl 10 mg 12/07/16 18:23 12/09/16 09:25 Roxycodone Tab* PO 10 mg Q6H PRN Administration PAIN Pharmacy Profile Note 1 note 12/08/16 12:00 Coumadin Per Pharmacy* FOLLOW UP .PER PHARMACY PROTOC [facility] Protocol Vital Signs Temp Pulse Resp BP Pulse Ox 97.7 F 95 18 130/83 93 12/09/16 11:22 12/09/16 11:22 12/09/16 11:22 12/09/16 11:22 12/09/16 11:22 Gen: Pt in NAD, lying in bed HEENT: No Scleral Icterus, Mucous Membranes Moist Neck: NL Appearance and Movements; NL JVP Respiratory: Good a/e b/l, Clear to Auscultation Cardiovascular: irregular, no murmer Abdominal: NL Sounds; No Tenderness; No Distention Lymphatic: No Cervical Adenopathy Extremities: B/L LE edema, L>R, much improved Skin: No Rash or Ulcers Neurological: No focal defecits Laboratory Results - last 24 hr 12/08/16 12/08/16 12/09/16 11:31 13:40 05:04 INR (Anticoag Therapy) 1.14 H 1.08 1.13 H I/R: 71 y o m with B/L PEs, 3 cm wedge shaped density in FAWAD Continue Lovenox/Coumadin. Lung lesion is likely infarct, will f/u with rpt CT chest in 4- 6 weeks. LE dopplers show B/L DVTs. Echo with evidence of mild Rt heart strain Overall stable and improving New onset A.fib likely secondary to PE Will need hypercoagulable w/u as out pt Age appropriate cancer screening as per primary, pt with h/o colon polpys, due for colonoscopy next month
[2016-12-10] MEDS: oxyCODONE TAB* 5 MG TAB PO PRN ×3 (05:35→18:24)
[2016-12-10] MEDS: Lisinopril TAB* 10 MG PO SCH (09:09)
[2016-12-10] MEDS: Hydrochlorothiazide TAB* 25 MG PO SCH (09:09)
[2016-12-10] MEDS: Aspirin EC Low Dose* 81 MG TAB.EC PO SCH (09:09)
[2016-12-10] MEDS: Metoprolol Succinate XL TAB* 50 MG PO SCH ×2 (09:09→21:29)
[2016-12-10] MEDS: Enoxaparin(*) 80 MG/0.8 ML SYR SUBCUT SCH (12:02)
--- NOTE | 2016-12-10 13:34 | PN ---
Subjective Date of Service: 12/10/16 Interval History: Patient seen this morning. Reports feeling well. Ambulated around the unit this morning, got fatigued after a while but nothing like [employer]. Denies chest pain. Family History: Unchanged from Admission Social History: Unchanged from Admission Past Medical History: Unchanged from Admission Objective Active Medications: Aspirin (Aspirin Ec Low Dose*) 81 mg PO DAILY [facility] Enoxaparin Sodium (Lovenox(*)) 75 mg SUBCUT Q12H SARAY Hydralazine HCl (Apresoline Iv*) 10 mg IV SLOW PU Q6H PRN Hydrochlorothiazide (Hydrodiuril Tab*) 25 mg PO DAILY SARAY Lisinopril (Prinivil Tab*) 10 mg PO DAILY SARAY Metoprolol Succinate (Toprol Xl Tab*) 50 mg PO BID SARAY Ondansetron HCl (Zofran Inj*) 4 mg IV Q6H PRN Oxycodone HCl (Roxycodone Tab*) 10 mg PO Q6H PRN Pharmacy Profile Note (Coumadin Per Pharmacy*) 1 note FOLLOW UP .PER PHARMACY PROTOC [facility] Vital Signs 12/09/16 12/09/16 12/09/16 17:52 18:02 19:10 Temperature 97.6 F Pulse Rate 90 Respiratory 16 16 16 Rate Blood Pressure 147/68 (mmHg) O2 Sat by Pulse 95 Oximetry 12/09/16 12/09/16 12/09/16 19:17 19:52 23:20 Temperature 97.4 F Pulse Rate 92 Respiratory 16 18 18 Rate Blood Pressure 129/74 (mmHg) O2 Sat by Pulse 94 Oximetry 12/10/16 12/10/16 12/10/16 00:00 01:20 03:13 Temperature 97.6 F 97.4 F Pulse Rate 88 79 Respiratory 16 16 16 Rate Blood Pressure 115/71 137/83 (mmHg) O2 Sat by Pulse 96 96 Oximetry 12/10/16 12/10/16 12/10/16 05:35 07:15 07:35 Temperature Pulse Rate Respiratory 18 16 16 Rate Blood Pressure (mmHg) O2 Sat by Pulse Oximetry 12/10/16 12/10/16 08:08 12:02 Temperature 97.9 F Pulse Rate 77 Respiratory 16 18 Rate Blood Pressure 154/75 (mmHg) O2 Sat by Pulse 98 Oximetry Oxygen Devices in Use Now: None Appearance: Elderly, M, laying in bed in NAD Eyes: No Scleral Icterus Ears/Nose/Mouth/Throat: Mucous Membranes Moist Neck: NL Appearance and Movements; NL JVP Respiratory: Symmetrical Chest Expansion and Respiratory Effort, Clear to Auscultation Cardiovascular: - - IRIR, normal rate Abdominal: NL Sounds; No Tenderness; No Distention Lymphatic: No Cervical Adenopathy Extremities: - - LLE edema Skin: No Rash or Ulcers Neurological: Alert and Oriented x 3 Result Diagrams: 12/08/16 06:18 12/08/16 06:18 Assess/Plan/Problems-Billing Assessment: B/L PEs, lung mass vs infarction, HTN urgency, AFib in a 71 yo M with hx of HTN , PAD, chronic pain - Patient Problems (1) Pulmonary emboli Current Visit: Yes Comment: Continue Lovenox for another 24 hours now that INR is therapeutic. Continue Coumadin. Appreciate Pulm assistance, Dr. England and Dr. Laguna both feel this is likely a pulmonary infarct and not a mass. Can repeat CT scan in 4 weeks. LE dopplers show B/L DVTs. Echo shows some mild R sided dysfunction. Patient will need hypercoag work-up and age-approriate cancer screening as outpatient. (2) Atrial fibrillation Current Visit: Yes Comment: Continue home metoprolol. Lovenox/coumadin as above. (3) HTN (hypertension) Current Visit: Yes Comment: Continue Lisinopril, Metoprolol and HCTZ. (4) PAD (peripheral artery disease) Current Visit: Yes Comment: Continue ASA. Records obtained from [place], patient underwent thrombolysis and stent placement for PAD (5) Chronic pain Current Visit: Yes Comment: Continue oxy prn (6) DVT prophylaxis Current Visit: Yes Comment: Lovenox/Warfarin Status and Disposition: Inpatient for PE treatment, likely discharge on 12/11
[2016-12-10] MEDS ORDERED: Warfarin TAB(*) 2.5 MG PO ONE (17:00)
[2016-12-11] MEDS: oxyCODONE TAB* 5 MG TAB PO PRN ×2 (00:37→07:11)
[2016-12-11] MEDS: Enoxaparin(*) 80 MG/0.8 ML SYR SUBCUT SCH ×2 (00:37→12:04)
[2016-12-11] MEDS: Lisinopril TAB* 10 MG PO SCH (08:13)
[2016-12-11] MEDS: Aspirin EC Low Dose* 81 MG TAB.EC PO SCH (08:13)
[2016-12-11] MEDS: Hydrochlorothiazide TAB* 25 MG PO SCH (08:13)
[2016-12-11] MEDS: Metoprolol Succinate XL TAB* 50 MG PO SCH (08:13)
--- NOTE | 2016-12-11 11:32 | DCNOTE ---
Patient seen this morning. Has been ambulating around the unit. Feels well overall, no chest pain, no SOB, LE edema nearly resolved. On exam, IRIR, lungs CTA B/L, no w/r/r, mild LE edema, L>R Patient with some slight tachycardia while ambulating around the unit, suspect there is contribution from PE as well, will continue current metoprolol dose. Will discharge on Coumadin. Will need INR checked on 12/15. F/U with new PCP
[2016-12-11 12:45] VITALS: BP 129/71
--- NOTE | 2016-12-11 23:08 | DS ---
CC: Dr. Sharan Alicia * DISCHARGE SUMMARY: DATE OF ADMISSION: 12/07/16 DATE OF DISCHARGE: 12/11/16 PRIMARY CARE PHYSICIAN: Dr. Sharan Alicia. PRINCIPAL DISCHARGE DIAGNOSES: 1. Bilateral pulmonary emboli, pulmonary infarction, extensive. 2. Bilateral lower extremity deep vein thromboses. 3. New-onset atrial fibrillation. SECONDARY DIAGNOSES: 1. Hypertensive urgency. 2. Peripheral artery disease. 3. Chronic back pain. DISCHARGE MEDICATION REGIMEN: 1. Aspirin 81 mg by mouth daily. 2. Hydrochlorothiazide 25 mg by mouth daily. 3. Lisinopril 10 mg by mouth daily. 4. Toprol XL 50 mg by mouth 2 times daily. 5. Warfarin 5 mg by mouth daily. 6. Percocet 10/325 one tablet by mouth every 6 hours as needed for pain. STUDIES DONE DURING HOSPITALIZATION: Chest x-ray, impression: There is a 3.4 cm rounded density of the left middle lung field, this may represent fluid along the fissure. Parenchymal mass is within the differential. Recommend further evaluation with contrast enhanced CT of the chest. CTA of the chest, impression: Bilateral lobar pulmonary emboli 3.4 cm mass of the left upper lobe, bilateral pleural effusions, fatty liver. Transthoracic echocardiogram, conclusion: Global left ventricular wall motion and contractility within normal limits. There is normal left ventricular systolic function, the estimated ejection fraction is 55% to 60%. The right ventricle global systolic function is mildly reduced. There is trace to mild aortic regurgitation. No evidence of aortic stenosis, mild mitral regurgitation, mild- to-moderate tricuspid regurgitation, evidence of [id number] pulmonary hypertension. There is a small pericardial effusion. There are no signs significant hemodynamic compromise, left pleural effusion is present. Bilateral lower extremities Dopplers, impression: Bilateral deep vein thrombosis as described with extensive thrombosis present in the left lower extremity. HISTORY OF PRESENT ILLNESS AND HOSPITAL SUMMARY: Please see the full history and physical for full details. Briefly, Mr. Vargas is a 71-year-old male with a past medical history as above, who presented to the hospital with a few weeks of progressive shortness of breath and chest pain. As noted above, the patient underwent a CTA in the emergency department that showed bilateral PE. He was also found to be in atrial fibrillation while hospitalized, which is new diagnosis for him. CT scan in the emergency department was read as a possible lung mass; however in further discussion with the radiologist and with Dr. England, who was consulted, I felt that this may represent a pulmonary infarction from the patient's PE and the plan will be for a repeat CT scan in 4 to 6 weeks to see if any further actions such as biopsy will be need to be taken at that time. The patient was tachycardic; however, never hypoxic during hospitalization. As he was having difficulty affording his medications as an outpatient, he was initially started on a heparin drip and then subsequently transitioned to Lovenox and Coumadin and was kept into the hospital until his INR was therapeutic for 24 hours. The patient had some significant left lower extremity edema that improved by the time of discharge. During the hospitalization, he was quite hypertensive at times and lisinopril was added on to his previous medication regimen of metoprolol and hydrochlorothiazide. As noted above, the patient was found to be in atrial fibrillation, which is new. He will anticoagulated with Coumadin and his rate was relatively well controlled with metoprolol. This may all just be secondary to his pulmonary emboli and hopefully will resolve. The patient is scheduled for an INR check on 12/15/16 along with an appointment at his new PCP. The patient should proceed to have age appropriate cancer screening as an outpatient including colonoscopy, and I will defer to the PCP to determine if the patient should get hypercoagulable workup. TIME SPENT: Total time spent on this discharge 45 minutes. This is a summary of the hospitalization. Please see the full medical record for further details. [id number] #: [id number] MTDD
== END 2016-12-11 13:55 | disposition home or self-care (01) | DRG 176 ==
LOC: ED 13:43 → MEDTELE 18:24
PROVIDERS: ADMIT Hospitalist; ATTEND Hospitalist
PROC: 3E0234Z Introduction of Serum, Toxoid and Vaccine into Muscle, Percutaneous Approach (ICD-10-PCS; principal; 2016-12-08)
PROC: 3E0234Z Introduction of Serum, Toxoid and Vaccine into Muscle, Percutaneous Approach (ICD-10-PCS; 2016-12-08)
DX: I26.99 Other pulmonary embolism without acute cor pulmonale (principal); I31.3 Pericardial effusion (noninflammatory); I82.403 Acute embolism and thrombosis of unspecified deep veins of lower extremity, bilateral; K76.0 Fatty (change of) liver, not elsewhere classified; I08.3 Combined rheumatic disorders of mitral, aortic and tricuspid valves; I48.91 Unspecified atrial fibrillation; I10 Essential (primary) hypertension; G89.29 Other chronic pain; K63.5 Polyp of colon; I16.0 Hypertensive urgency; I27.20 Pulmonary hypertension, unspecified; I73.9 Peripheral vascular disease, unspecified; Z77.22 Contact with and (suspected) exposure to environmental tobacco smoke (acute) (chronic); M54.9 Dorsalgia, unspecified; Z83.3 Family history of diabetes mellitus; Z79.82 Long term (current) use of aspirin; Z79.01 Long term (current) use of anticoagulants; Z23 Encounter for immunization; R00.0 Tachycardia, unspecified
CPT/HCPCS: 36415; 71010; 71275; 80048; 80053; 82607; 82746; 83605; 83880; 84443; 84484; 84520; 85025; 85610; 85730; 87040; 90686; 90732; 93005; 93306; 93970; A9270-GY; J0360; J1644; J1650; J2405; Q9967

== ENCOUNTER 2023-11-17 22:04 | Observation (INO) ==
[2023-11-17 22:33] LABS: ABS Eosinophils 0.1 10^3/uL (0.0-0.5); ABS Lymphocytes 1.3 10^3/uL (1.0-4.8); ABS Monocytes 0.9 10^3/uL (0.0-1.1); ABS Neutrophils 4.1 10^3/uL (1.5-7.6); ABS Nucleated RBC 0.01 10^3/ul; Eosinophil % 1.1 %; Hematocrit 35.7 % (38-53); Hemoglobin 11.5 g/dL (13.2-16.3); Lymphocyte % 20.1 %; Mean Corpuscular Hemoglobin 30.3 pg (27-33); Mean Corpuscular Hgb Conc 32.2 g/dL (31-36); Mean Corpuscular Volume 94.1 fL (80-97); Mean Platelet Volume 8.7 fL (7.5-11.2); Nucleated Red Blood Cells % 0.1 %/100WBC (0.0-0.8); Platelet Count 168 10^3/uL (150-450); Red Blood Count 3.79 10^6/uL (4.06-5.63); Red Cell Distribution Width 14.8 % (12-17); White Blood Count 6.3 10^3/uL (3.6-10.2)
[2023-11-17 22:35] LABS: INR 1.85 (0.85-1.14)
[2023-11-17 23:13] LABS: Albumin/Globulin Ratio 2.1 (1-3); Creatinine, Serum 1.01 mg/dL (0.67-1.17); Globulin 1.9 g/dL (2-4); Total Bilirubin 0.5 mg/dL (0.2-1.0); Total Protein 5.9 g/dL (6.4-8.9); eGFR CKD-EPI 75.2 (>60)
[2023-11-18 00:48] LABS: High Sensitivity Troponin 1 Hr 8 pg/mL (<20)
[2023-11-18] MEDS: Iohexol 350 (CONTRAST) 500 ML MDV IV ONE (05:47)
[2023-11-18] MEDS ORDERED: Polyethylene Glycol 3350 17 GM PACKET PO PRN (10:55)
[2023-11-18] MEDS ORDERED: Albuterol HFA INHALER 8 gm MDI INH PRN (10:57)
[2023-11-18] MEDS ORDERED: Sulfur Hexaflouride MICROSPHR 25 MG VIAL IV PRN (11:01)
[2023-11-18] MEDS: Furosemide 40 mg/4 ml IV VIAL IV SLOW PU ONE (12:07)
[2023-11-19 05:43] LABS: ABS Basophils 0.1 10^3/uL (0.0-0.1); ABS Eosinophils 0.1 10^3/uL (0.0-0.5); ABS Lymphocytes 1.7 10^3/uL (1.0-4.8); ABS Monocytes 1.4 10^3/uL (0.0-1.1); ABS Neutrophils 4.6 10^3/uL (1.5-7.6); Eosinophil % 1.3 %; Hematocrit 37.5 % (38-53); Hemoglobin 12.4 g/dL (13.2-16.3); Lymphocyte % 21.2 %; Mean Corpuscular Hemoglobin 30.9 pg (27-33); Mean Corpuscular Volume 93.6 fL (80-97); Mean Platelet Volume 8.7 fL (7.5-11.2); Platelet Count 188 10^3/uL (150-450); Red Blood Count 4.01 10^6/uL (4.06-5.63); Red Cell Distribution Width 14.5 % (12-17); White Blood Count 7.8 10^3/uL (3.6-10.2)
[2023-11-19 06:34] LABS: Calcium 9.3 mg/dL (8.6-10.3); Creatinine, Serum 1.06 mg/dL (0.67-1.17); Magnesium 1.4 mg/dL (1.9-2.7); Potassium 4.3 mmol/L (3.5-5.0); eGFR CKD-EPI 70.9 (>60)
[2023-11-19] MEDS: NF:Omeprazole 10 mg CAP (NF) PO SCH (08:32)
[2023-11-19] MEDS: Magnesium Sulfate 2 gm BAG 2 GM/50 ML BAG IVPB ONE (09:20)
[2023-11-19] MEDS: Furosemide 40 mg/4 ml IV VIAL IV SLOW PU SCH (10:36)
[2023-11-19] MEDS: Magnesium Sulfate IV 1GM/100ML 1 GM/100 ML BAG IV ONE (10:37)
[2023-11-19] MEDS: Ondansetron ODT 4 mg TAB 4 MG TAB PO PRN (10:54)
[2023-11-20] MEDS: Calcium Carb (TUMS) 500 mg CHEW TAB PO ONE (03:23)
[2023-11-20 07:51] LABS: Calcium 8.7 mg/dL (8.6-10.3); Creatinine, Serum 1.63 mg/dL (0.67-1.17); Magnesium 2.2 mg/dL (1.9-2.7); Potassium 4.3 mmol/L (3.5-5.0); eGFR CKD-EPI 42.3 (>60)
[2023-11-20 09:23] VITALS: BP 113/60
[2023-11-20] MEDS: Senna TAB 8.6 mg TAB PO PRN (10:02)
== END 2023-11-20 12:30 | disposition home or self-care (01) ==
LOC: ED 22:04 → EDHOLD 22:04 → MED 11-18 16:50
PROVIDERS: ADMIT Internal Medicine; ATTEND Internal Medicine